=== PATIENT | male | born 1950 | race Asian ===

== ENCOUNTER 2021-10-19 04:11 | Inpatient (IN) | payer OTHER ==
[2021-10-17 14:08] VITALS: BMI 26.2
[2021-10-19] MEDS ORDERED: BUPIVACAINE HCL/PF 0.5% (5MG/ML) 10 ML VIAL ONE (07:45)
[2021-10-19] MEDS ORDERED: THROMBIN (BOVINE) 5,000 UNIT VIAL TP ONE ×4 (07:45→10:47)
[2021-10-19] MEDS ORDERED: VANCOMYCIN 1,000 MG VIAL (RESTRICTED TO ID ONLY) ONE (07:45)
[2021-10-19] MEDS ORDERED: BACITRACIN 15 GM TUBE TOPICAL OINTMENT ONE (07:45)
[2021-10-19] MEDS ORDERED: MIDAZOLAM HCL 2 MG/2 ML SINGLE DOSE VIAL ONE (08:45)
[2021-10-19] MEDS ORDERED: PROPOFOL 20 ML ONE ×10 (08:46→11:52)
[2021-10-19] MEDS ORDERED: ROCURONIUM BROMIDE 50 MG/5 ML SYRINGE ONE ×2 (09:03→10:12)
[2021-10-19] MEDS ORDERED: VANCOMYCIN 1,000 MG VIAL (RESTRICTED TO ID ONLY) IVPB ONE (10:47)
[2021-10-19] MEDS ORDERED: BUPIVACAINE HCL/PF 0.5% (5 MG/ML) 30 ML VIAL IJ ONE ×2 (10:47)
[2021-10-19] MEDS ORDERED: NEOSTIGMINE METHYLSULFATE 0.5 MG/1 ML - 10 ML MDV ONE (10:49)
[2021-10-19] MEDS ORDERED: BISACODYL 10 MG SUPP.RECT RC PRN (13:57)
[2021-10-19] MEDS ORDERED: ACETAMINOPHEN 325 MG TABLET (FP) PO PRN (13:57)
[2021-10-19] MEDS ORDERED: ONDANSETRON 4 MG/2 ML VIAL IVPUSH PRN ×2 (13:57→14:36)
[2021-10-19] MEDS ORDERED: LISINOPRIL 5 MG TABLET PO PRN (14:00)
[2021-10-19] MEDS ORDERED: D5-1/2NS+20 MEQ KCL - 1,000 ML IV SCH (14:00)
[2021-10-19] MEDS ORDERED: DEXAMETHASONE SOD PHOSPHATE 4 MG/1 ML VIAL IVPUSH PRN (14:36)
[2021-10-19] MEDS ORDERED: PROMETHAZINE HCL 25 MG/1 ML VIAL IVPB PRN (14:36)
[2021-10-19] MEDS ORDERED: LACTATED RINGERS SOLUTION 1,000 ML IV SCH (14:45)
[2021-10-19] MEDS ORDERED: DEXAMETHASONE SOD PHOSPHATE 4 MG/1 ML VIAL IVPUSH ONE (14:56)
[2021-10-19] MEDS: HYDROmorphone *PCA* 10MG/50ML DISP.SYRIN PCA SCH (15:16)
[2021-10-19] MEDS: D5-1/2NS+20 MEQ KCL - 20 MEQ/1,000 ML INFUS.BAG IV SCH (15:16)
[2021-10-19 17:17] LABS: BASO % 0.1 % (0-2.0); EOS % 0.1 % (0-4.5); HEMATOCRIT 43.8 % (35.4-49); HEMOGLOBIN 14.1 GM/dL (11.7-16.9); LYMPH % 5.6 % (8-40); MCH 25.3 pg (25.7-33.7); MCHC 32.3 g/dl (32.0-35.9); MEAN CELL VOLUME 78.3 fl (80-96); MEAN PLT VOLUME 7.4 fl (7.5-11.1); MONO % 2.2 % (3.8-10.2); PLATELET COUNT 182 10^3/uL (134-434); RBC 5.59 M/mm3 (4.00-5.60); RDW 14.7 % (11.9-15.9); WHITE BLOOD COUNT 12.5 K/mm3 (4.0-10.0)
[2021-10-19] MEDS ORDERED: ceFAZolin SODIUM 1 GM VIAL ONE (17:19)
[2021-10-19 17:25] LABS: CALCIUM 8.6 mg/dL (8.5-10.1)
[2021-10-19 17:26] LABS: BLOOD UREA NITROGEN 15.4 mg/dL (7-18)
[2021-10-19 17:29] LABS: CREATININE 0.9 mg/dL (0.55-1.3)
[2021-10-19] MEDS ORDERED: DEXAMETHASONE SOD PHOSPHATE 4 MG/1 ML VIAL ONE (17:40)
[2021-10-19 17:42] LABS: ANISOCYTOSIS 1+; MACROCYTOSIS 0
[2021-10-19] MEDS: CEFAZOLIN 1 GM in DEXTROSE 5%-WATER - 1 GM/50 ML IVPB IVPB SCH (18:10)
[2021-10-19] MEDS: diazePAM 5 MG TABLET PO SCH (22:03)
[2021-10-19] MEDS: GABAPENTIN 100 MG CAPSULE PO SCH (22:03)
[2021-10-19] MEDS: ATORVASTATIN CA 20 MG TABLET (FP) PO SCH (22:03)
[2021-10-19] MEDS: DOCUSATE SODIUM 100 MG CAPSULE (FP) PO SCH (22:03)
[2021-10-20] MEDS ORDERED: ceFAZolin SODIUM 1 GM VIAL ONE ×2 (01:32→09:33)
[2021-10-20] MEDS ORDERED: DEXTROSE 5%-WATER - 50 ML IVPB ONE ×2 (01:32→09:33)
[2021-10-20] MEDS: CEFAZOLIN 1 GM in DEXTROSE 5%-WATER - 1 GM/50 ML IVPB IVPB SCH ×2 (02:38→11:23)
[2021-10-20] MEDS: GABAPENTIN 100 MG CAPSULE PO SCH ×4 (03:09→22:32)
[2021-10-20] MEDS: diazePAM 5 MG TABLET PO SCH ×4 (03:09→22:32)
[2021-10-20] MEDS: DOCUSATE SODIUM 100 MG CAPSULE (FP) PO SCH ×4 (03:09→22:32)
[2021-10-20] MEDS ORDERED: PSYLLIUM HUSK 0.4 GM PO SCH (10:00)
[2021-10-20] MEDS: CYANOCOBALAMIN 1,000 MCG TABLET (FP) PO SCH (11:23)
[2021-10-20] MEDS: DONEPEZIL HCL 10 MG TABLET (FP) PO SCH ×2 (11:24→22:32)
[2021-10-20] MEDS: D5-1/2NS+20 MEQ KCL - 20 MEQ/1,000 ML INFUS.BAG IV SCH (15:33)
[2021-10-20] MEDS: HYDROmorphone *PCA* 10MG/50ML DISP.SYRIN PCA SCH (17:05)
[2021-10-20] MEDS: ATORVASTATIN CA 20 MG TABLET (FP) PO SCH (22:32)
[2021-10-21] MEDS: D5-1/2NS+20 MEQ KCL - 20 MEQ/1,000 ML INFUS.BAG IV SCH ×2 (02:00→15:33)
[2021-10-21] MEDS: GABAPENTIN 100 MG CAPSULE PO SCH ×3 (05:54→22:31)
[2021-10-21] MEDS: diazePAM 5 MG TABLET PO SCH ×3 (05:54→22:31)
[2021-10-21] MEDS: DOCUSATE SODIUM 100 MG CAPSULE (FP) PO SCH ×3 (05:54→22:32)
[2021-10-21] MEDS: CYANOCOBALAMIN 1,000 MCG TABLET (FP) PO SCH (11:51)
[2021-10-21] MEDS: DONEPEZIL HCL 10 MG TABLET (FP) PO SCH (22:32)
[2021-10-21] MEDS: ATORVASTATIN CA 20 MG TABLET (FP) PO SCH (22:32)
[2021-10-22] MEDS: D5-1/2NS+20 MEQ KCL - 20 MEQ/1,000 ML INFUS.BAG IV SCH ×3 (02:34→21:37)
[2021-10-22] MEDS: DOCUSATE SODIUM 100 MG CAPSULE (FP) PO SCH ×3 (05:50→21:37)
[2021-10-22] MEDS: diazePAM 5 MG TABLET PO SCH ×3 (05:51→21:38)
[2021-10-22] MEDS: GABAPENTIN 100 MG CAPSULE PO SCH ×3 (05:52→21:37)
[2021-10-22] MEDS ORDERED: TAPENTADOL HYDROCHLORIDE 50 MG TABLET PO PRN (07:46)
[2021-10-22] MEDS: CYANOCOBALAMIN 1,000 MCG TABLET (FP) PO SCH (10:18)
[2021-10-22] MEDS: DONEPEZIL HCL 10 MG TABLET (FP) PO SCH (21:37)
[2021-10-22] MEDS: ATORVASTATIN CA 20 MG TABLET (FP) PO SCH (21:38)
[2021-10-23] MEDS: diazePAM 5 MG TABLET PO SCH ×3 (06:22→22:34)
[2021-10-23] MEDS: DOCUSATE SODIUM 100 MG CAPSULE (FP) PO SCH ×3 (06:22→22:33)
[2021-10-23] MEDS: GABAPENTIN 100 MG CAPSULE PO SCH ×3 (06:22→22:35)
[2021-10-23 08:32] LABS: URINE APPEARANCE CLEAR; URINE BILIRUBIN NEGATIVE (NEGATIVE); URINE COLOR YELLOW; URINE GLUCOSE (UA) NEGATIVE (NEGATIVE); URINE KETONE NEGATIVE (NEGATIVE); URINE LEUK ESTERASE NEGATIVE (NEGATIVE); URINE NITRITE NEGATIVE (NEGATIVE); URINE PROTEIN NEGATIVE (NEGATIVE); URINE UROBILINOGEN 0.2 mg/dL (0.2-1.0)
[2021-10-23] MEDS: CYANOCOBALAMIN 1,000 MCG TABLET (FP) PO SCH (10:25)
[2021-10-23] MEDS: D5-1/2NS+20 MEQ KCL - 20 MEQ/1,000 ML INFUS.BAG IV SCH (17:12)
[2021-10-23] MEDS: DONEPEZIL HCL 10 MG TABLET (FP) PO SCH (22:33)
[2021-10-23] MEDS: ATORVASTATIN CA 20 MG TABLET (FP) PO SCH (22:35)
[2021-10-24] MEDS: DOCUSATE SODIUM 100 MG CAPSULE (FP) PO SCH ×3 (06:05→23:28)
[2021-10-24] MEDS: diazePAM 5 MG TABLET PO SCH ×3 (06:05→23:27)
[2021-10-24] MEDS: GABAPENTIN 100 MG CAPSULE PO SCH ×3 (06:06→23:27)
[2021-10-24] MEDS: HYDROmorphone *PCA* 10MG/50ML DISP.SYRIN PCA SCH (08:03)
[2021-10-24] MEDS: CYANOCOBALAMIN 1,000 MCG TABLET (FP) PO SCH (10:49)
[2021-10-24] MEDS: DONEPEZIL HCL 10 MG TABLET (FP) PO SCH (23:27)
[2021-10-24] MEDS: ATORVASTATIN CA 20 MG TABLET (FP) PO SCH (23:27)
[2021-10-25] MEDS: DOCUSATE SODIUM 100 MG CAPSULE (FP) PO SCH ×3 (06:20→21:53)
[2021-10-25] MEDS: D5-1/2NS+20 MEQ KCL - 20 MEQ/1,000 ML INFUS.BAG IV SCH (06:20)
[2021-10-25] MEDS: diazePAM 5 MG TABLET PO SCH ×3 (06:20→21:53)
[2021-10-25] MEDS: GABAPENTIN 100 MG CAPSULE PO SCH ×3 (06:21→21:53)
[2021-10-25] MEDS: CYANOCOBALAMIN 1,000 MCG TABLET (FP) PO SCH (10:44)
[2021-10-25] MEDS ORDERED: TAMSULOSIN HCL 0.4 MG CAP PO ONE (18:00)
[2021-10-25] MEDS: DONEPEZIL HCL 10 MG TABLET (FP) PO SCH (21:53)
[2021-10-25] MEDS: ATORVASTATIN CA 20 MG TABLET (FP) PO SCH (21:53)
[2021-10-26] MEDS: diazePAM 5 MG TABLET PO SCH (06:09)
[2021-10-26] MEDS: DOCUSATE SODIUM 100 MG CAPSULE (FP) PO SCH (06:09)
[2021-10-26] MEDS: GABAPENTIN 100 MG CAPSULE PO SCH (06:09)
[2021-10-26 07:37] VITALS: RESP 20
[2021-10-26] MEDS ORDERED: TAMSULOSIN HCL 0.4 MG CAP PO SCH (08:30)
[2021-10-26] MEDS: CYANOCOBALAMIN 1,000 MCG TABLET (FP) PO SCH (09:09)
[2021-10-26 13:18] LABS: HEMATOCRIT 38.6 % (35.4-49); HEMOGLOBIN 12.7 GM/dL (11.7-16.9); MCH 25.6 pg (25.7-33.7); MCHC 32.9 g/dl (32.0-35.9); MEAN CELL VOLUME 77.7 fl (80-96); MEAN PLT VOLUME 7.4 fl (7.5-11.1); PLATELET COUNT 287 10^3/uL (134-434); RBC 4.97 M/mm3 (4.00-5.60); RDW 14.5 % (11.9-15.9); WHITE BLOOD COUNT 8.6 K/mm3 (4.0-10.0)
[2021-10-26 13:57] VITALS: BP 114/61; PULSE 86; TEMP 98
== END 2021-10-26 15:36 | disposition short-term general hospital (02) | DRG 460 ==
LOC: J2C 04:11 → J8W 18:52
PROVIDERS: ADMIT Neurological Surgery; ATTEND Neurological Surgery
PROC: 01NB0ZZ Release Lumbar Nerve, Open Approach (ICD-10-PCS; 2021-10-19)
PROC: 00QT0ZZ Repair Spinal Meninges, Open Approach (ICD-10-PCS; 2021-10-19)
PROC: 4A10X4G Monitoring of Central Nervous Electrical Activity, Intraoperative, External Approach (ICD-10-PCS; 2021-10-19)
PROC: 0SG1071 Fusion of 2 or more Lumbar Vertebral Joints with Autologous Tissue Substitute, Posterior Approach, Posterior Column, Open Approach (ICD-10-PCS; principal; 2021-10-19 08:30)
DX: M48.061 Spinal stenosis, lumbar region without neurogenic claudication (principal); I10 Essential (primary) hypertension; M54.16 Radiculopathy, lumbar region; M54.50 Low back pain, unspecified; R32 Unspecified urinary incontinence; R33.9 Retention of urine, unspecified; N40.1 Benign prostatic hyperplasia with lower urinary tract symptoms
CPT/HCPCS: 36415; 72100-TC-FY; 76000-TC-FY; 76775-TC; 76856-TC; 80048; 81003; 85025; 85027; 94760; 97116-GP; 97162-GP; C9803-CS; U0003; U0005